=== PATIENT | female | born 1955 | race African-American/Black ===

== ENCOUNTER 2016-09-02 15:24 | Emergency (ER) | payer OTHER ==
[~2016-09-02] VITALS: Ht 160 cm; Wt 60.9 kg
[~2016-09-02 15:24] MED LIST: OTC PAIN MEDS
[2016-09-02] MEDS ORDERED: NORT25 PO (15:40)
[2016-09-02] MEDS ORDERED: HYDR25TA PO (15:40)
[2016-09-02] MEDS ORDERED: TRAM50TA4 PO (15:40)
[2016-09-02] MEDS ORDERED: HydrALAZINE HCL 20 MG/ML VIAL IVP ONE (16:00)
[2016-09-02 16:02] LABS: BASOPHILS % (AUTO) 0.6 % (0.0-2.0); EOSINOPHILS % (AUTO) 0.3 % (1.0-6.0); HEMATOCRIT 39.9 % (36-46); HEMOGLOBIN 13.2 g/dL (12.0-16.0); LYMPHOCYTES # (AUTO) 0.9 K/uL (1.0-4.8); LYMPHOCYTES % (AUTO) 16.5 % (22.0-44.0); MEAN CORPUSCULAR HEMOGLOBIN 29.1 pg (26.0-34.0); MEAN CORPUSCULAR HGB CONC 33.2 G/dL (31.0-37.0); MEAN CORPUSCULAR VOLUME 88 fL (80-100); MONOCYTES # (AUTO) 0.3 K/uL (0.1-1.0); NEUTROPHILS # (AUTO) 4.3 K/uL (1.8-7.7); NEUTROPHILS % (AUTO) 77.6 % (40.0-70.0); PLATELET COUNT (AUTO) 158 K/uL (150-450); RED BLOOD CELL COUNT(AUTO) 4.54 MIL/uL (4.00-5.20); RED CELL DISTRIBUTION WIDTH 15.7 % (11.5-14.5); WHITE BLOOD COUNT (AUTO) 5.6 K/uL (4.5-11.0)
[2016-09-02 16:12] LABS: ANION GAP 8 mmol/L (8-16); CALCIUM, TOTAL 8.4 mg/dL (8.8-10.5); CARBON DIOXIDE 26 mmol/L (22-29); CHLORIDE 104 mmol/L (98-107); GLOMERULAR FILTR. RATE CALC > 60 mL/min (>60); SODIUM SERUM 138 mmol/L (136-145); UREA NITROGEN, BLOOD 17 mg/dL (7-18)
[2016-09-02] MEDS ORDERED: NICARDipine 20 MG/DEXT,ISO-OSM 200 ML IV PRN (16:16)
[2016-09-02 16:17] LABS: INR 1.3 (0.9-1.1); PROTHROMBIN TIME 13.3 SEC (9.4-11.6)
[2016-09-02 16:37] LABS: ALANINE AMINOTRANSFERASE 73 U/L (12-78); ASPARTATE AMINOTRANSFERASE 83 U/L (15-37); BILIRUBIN,TOTAL 0.6 mg/dL (0.1-1.0); CREATINE KINASE MB 4.4 ng/mL (0-5); CREATINE KINASE, TOTAL 152 U/L (26-192); TOTAL PROTEIN, SERUM 8.1 g/dL (6.4-8.2)
[2016-09-02 16:38] LABS: APPEARANCE,URINE CLEAR (CLEAR); GLUCOSE, URINE (UA) NEGATIVE (NEGATIVE); KETONES,URINE NEGATIVE (NEGATIVE); LEUKOCYTE ESTERASE ,URINE NEGATIVE (NEGATIVE); OCCULT BLOOD,URINE NEGATIVE (NEGATIVE); PROTEIN,URINE NEGATIVE (NEGATIVE)
[2016-09-02 16:41] LABS: ADD UA MICROSCOPIC NO
[2016-09-02 17:40] VITALS: BP 137/69
== END 2016-09-02 17:46 | disposition short-term general hospital (02) ==
LOC: EMS 15:26
DX: I62.9 Nontraumatic intracranial hemorrhage, unspecified (principal); I10 Essential (primary) hypertension; J40 Bronchitis, not specified as acute or chronic; F12.90 Cannabis use, unspecified, uncomplicated; Z88.1 Allergy status to other antibiotic agents
CPT/HCPCS: 36415; 51702; 70450; 71010; 80053; 81003; 82550; 82553; 82962; 84484; 85025; 85610; 85730; 93005; 96365; 96375; 99291; J0360